=== PATIENT | male | born 1980 | race Caucasian/White ===

== ENCOUNTER 2023-02-26 17:14 | Inpatient (IN) | payer OTHER ==
[~2023-02-26] VITALS: Ht 175.3 cm; Wt 72.7 kg
[~2023-02-26 17:14] MED LIST: GABA-1181 PO; INSLAN SQ; INSNPH SQ
[2023-02-26] MEDS ORDERED: INSULIN REGULAR, HUMAN 100 UNITS/ML IVP ONE (19:00)
[2023-02-26 19:29] LABS: BASOPHILS % (AUTO) 0.7 % (0.0-2.0); EOSINOPHILS % (AUTO) 1.6 % (1.0-6.0); HEMATOCRIT 43.3 % (41-53); HEMOGLOBIN 14.9 g/dL (13.5-17.5); LYMPHOCYTES # (AUTO) 1.8 K/uL (1.0-4.8); LYMPHOCYTES % (AUTO) 22.1 % (22.0-44.0); MEAN CORPUSCULAR HEMOGLOBIN 29.3 pg (26.0-34.0); MEAN CORPUSCULAR HGB CONC 34.5 G/dL (31.0-37.0); MEAN CORPUSCULAR VOLUME 85 fL (80-100); MONOCYTES # (AUTO) 1.1 K/uL (0.1-1.0); MONOCYTES % (AUTO) 12.6 % (2.0-9.0); NEUTROPHILS # (AUTO) 5.3 K/uL (1.8-7.7); PLATELET COUNT (AUTO) 276 K/uL (150-450)
[2023-02-26 19:45] LABS: ALANINE AMINOTRANSFERASE 14 U/L (12-78); ALBUMIN 3.2 g/dL (3.4-5.0); ALKALINE PHOSPHATASE 116 U/L (46-116); ANION GAP 7 mmol/L (8-16); ASPARTATE AMINOTRANSFERASE 15 U/L (15-37); BILIRUBIN,TOTAL 0.6 mg/dL (0.1-1.0); CALCIUM, TOTAL 9.6 mg/dL (8.8-10.5); CARBON DIOXIDE 30 mmol/L (22-29); CHLORIDE 94 mmol/L (98-107); CREATININE 0.78 mg/dL (0.60-1.30); GLOMERULAR FILTR. RATE CALC > 60 mL/min (>60); LIPASE 26 U/L (16-77); POTASSIUM 4.9 mmol/L (3.5-5.1); SODIUM SERUM 131 mmol/L (136-145); TOTAL PROTEIN, SERUM 7.7 g/dL (6.4-8.2)
[2023-02-26 19:54] LABS: ACETONE,BLOOD NEGATIVE (NEGATIVE); GLUCOSE,RANDOM 417 mg/dL (70-110)
[2023-02-26] MEDS ORDERED: PIPERACILLIN/TAZO 3.375 GM/D5W 50 ML IV ONE (20:00)
[2023-02-26] MEDS ORDERED: VANCOMYCIN 1GM/WATER(PEG/NADA) 200 ML IV ONE (20:30)
[2023-02-26 20:34] LABS: COVID AG,FIA SOURCE NASOPHARYNGEAL
[2023-02-26 21:06] LABS: GLUCOMETER DEV NAME(LOC) ER.6
[2023-02-26] MEDS ORDERED: ONDANSETRON HCL 4 MG/2 ML VIAL IVP PRN (21:15)
[2023-02-26] MEDS ORDERED: BISACODYL 10 MG RECTAL RECTAL SUPPOSITORY PR PRN (21:15)
[2023-02-26] MEDS ORDERED: *CLINICAL-LEVOFLOXACIN IVPB DOSING CLINICAL ONE (21:15)
[2023-02-26] MEDS ORDERED: ACETAMINOPHEN 325 MG TABLET PO PRN (21:15)
[2023-02-26] MEDS ORDERED: SODIUM CHLORIDE 0.9% 1,000 ML IV ONE (21:15)
[2023-02-26] MEDS ORDERED: MAGNESIUM HYDROXIDE SUSPENSION 30 ML UDCUP PO PRN (21:15)
[2023-02-26 21:18] VITALS: BP 115/77; PULSE 81; RESP 20; TEMP 98.5
[2023-02-26] MEDS ORDERED: ZOLPIDEM TARTRATE 5 MG TABLET PO ONE (21:30)
[2023-02-26] MEDS ORDERED: LORazepam 2 MG/ML VIAL IVP PRN (21:30)
[2023-02-26] MEDS: HYDROCODONE/ACETAMINOPHEN 5-325 MG TABLET PO PRN (21:53)
[2023-02-26] MEDS: ZOLPIDEM TARTRATE 5 MG TABLET PO PRN (21:53)
[2023-02-26 22:16] LABS: GLUCOMETER DEV NAME(LOC) 6N.1
[2023-02-26] MEDS ORDERED: DEXTROSE 50%-WATER 25 GM/50 ML SYRINGE IVP PRN (23:30)
[2023-02-26] MEDS: LEVOFLOXACIN 750 MG/D5% WATER 150 ML IV SCH (23:34)
[2023-02-26] MEDS: HEPARIN SODIUM,PORCINE 5,000 UNITS/ML VIAL SQ SCH (23:34)
[2023-02-27] MEDS: PIPERACILLIN/TAZO 3.375 GM/D5W 50 ML IV SCH ×2 (02:53→08:49)
[2023-02-27] MEDS: HYDROCODONE/ACETAMINOPHEN 5-325 MG TABLET PO PRN ×4 (02:58→22:01)
[2023-02-27 05:45] VITALS: BP 102/70; PULSE 90; RESP 20; TEMP 98.4
[2023-02-27] MEDS: INSULIN LISPRO 100 UNITS/ML SQ PRN ×4 (06:02→22:01)
[2023-02-27 06:11] LABS: GLUCOMETER DEV NAME(LOC) 4E.2
[2023-02-27 07:34] LABS: BASOPHILS % (AUTO) 0.5 % (0.0-2.0); EOSINOPHILS % (AUTO) 1.9 % (1.0-6.0); HEMATOCRIT 39.2 % (41-53); HEMOGLOBIN 13.4 g/dL (13.5-17.5); LYMPHOCYTES # (AUTO) 1.4 K/uL (1.0-4.8); LYMPHOCYTES % (AUTO) 19.4 % (22.0-44.0); MEAN CORPUSCULAR HEMOGLOBIN 28.4 pg (26.0-34.0); MEAN CORPUSCULAR HGB CONC 34.2 G/dL (31.0-37.0); MEAN CORPUSCULAR VOLUME 83 fL (80-100); MONOCYTES # (AUTO) 0.9 K/uL (0.1-1.0); MONOCYTES % (AUTO) 11.6 % (2.0-9.0); NEUTROPHILS % (AUTO) 66.6 % (40.0-70.0); PLATELET COUNT (AUTO) 283 K/uL (150-450); RED BLOOD CELL COUNT(AUTO) 4.71 MIL/uL (4.50-5.90)
[2023-02-27 07:58] LABS: ANION GAP 8 mmol/L (8-16); CALCIUM, TOTAL 8.9 mg/dL (8.8-10.5); CARBON DIOXIDE 27 mmol/L (22-29); CHLORIDE 98 mmol/L (98-107); CREATININE 0.73 mg/dL (0.60-1.30); GLOMERULAR FILTR. RATE CALC > 60 mL/min (>60); GLUCOSE,RANDOM 219 mg/dL (70-110); POTASSIUM 3.9 mmol/L (3.5-5.1); SODIUM SERUM 133 mmol/L (136-145)
[2023-02-27] MEDS ORDERED: VANCOMYCIN HCL 1.25 GM in DEXTROSE 5%-WATER 250 ML IV SCH (08:00)
[2023-02-27] MEDS: DOCUSATE SODIUM 100 MG CAPSULE PO SCH ×2 (08:47→21:46)
[2023-02-27] MEDS: HEPARIN SODIUM,PORCINE 5,000 UNITS/ML VIAL SQ SCH ×3 (08:49→23:56)
[2023-02-27] MEDS: PANTOPRAZOLE SODIUM 40 MG DR TABLET PO SCH (08:49)
[2023-02-27] MEDS: MORPHINE SULFATE 2 MG/ML SYRINGE IVP PRN ×2 (08:51→15:33)
[2023-02-27 13:11] LABS: GLUCOMETER DEV NAME(LOC) 4E.2
[2023-02-27 15:24] VITALS: BP 113/77; PULSE 74; RESP 20; TEMP 98.4
[2023-02-27 20:19] VITALS: BP 111/75; PULSE 83; RESP 20; TEMP 98.1
[2023-02-27] MEDS: GABAPENTIN 300 MG CAPSULE PO SCH (21:46)
[2023-02-27] MEDS: LEVOFLOXACIN 750 MG/D5% WATER 150 ML IV SCH (21:47)
[2023-02-27] MEDS: INSULIN GLARGINE,HUM.REC.ANLOG 100 UNITS/ML SQ SCH (22:00)
[2023-02-27] MEDS: ZOLPIDEM TARTRATE 5 MG TABLET PO PRN (22:01)
[2023-02-27] MEDS ORDERED: SODIUM CHLORIDE 0.9% 500 ML IV ONE (22:09)
[2023-02-28 04:32] VITALS: BP 102/69; PULSE 81; RESP 20; TEMP 97.7
[2023-02-28] MEDS: INSULIN LISPRO 100 UNITS/ML SQ PRN ×4 (06:01→21:18)
[2023-02-28] MEDS: HYDROCODONE/ACETAMINOPHEN 5-325 MG TABLET PO PRN ×4 (06:01→21:18)
[2023-02-28 06:16] LABS: GLUCOMETER DEV NAME(LOC) 6N.2B
[2023-02-28 06:47] LABS: BASOPHILS % (AUTO) 0.7 % (0.0-2.0); EOSINOPHILS % (AUTO) 2.6 % (1.0-6.0); HEMATOCRIT 39.1 % (41-53); HEMOGLOBIN 13.6 g/dL (13.5-17.5); LYMPHOCYTES # (AUTO) 1.4 K/uL (1.0-4.8); LYMPHOCYTES % (AUTO) 19.3 % (22.0-44.0); MEAN CORPUSCULAR HGB CONC 34.6 G/dL (31.0-37.0); MEAN CORPUSCULAR VOLUME 84 fL (80-100); MONOCYTES # (AUTO) 0.7 K/uL (0.1-1.0); MONOCYTES % (AUTO) 9.5 % (2.0-9.0); NEUTROPHILS # (AUTO) 4.8 K/uL (1.8-7.7); NEUTROPHILS % (AUTO) 67.9 % (40.0-70.0); PLATELET COUNT (AUTO) 284 K/uL (150-450); RED BLOOD CELL COUNT(AUTO) 4.67 MIL/uL (4.50-5.90)
[2023-02-28 07:02] LABS: GLUCOMETER DEV NAME(LOC) 6N.1
[2023-02-28 07:02] LABS: GLUCOMETER DEV NAME(LOC) 6S.2
[2023-02-28 07:04] LABS: ANION GAP 5 mmol/L (8-16); CARBON DIOXIDE 30 mmol/L (22-29); CHLORIDE 100 mmol/L (98-107); CREATININE 0.69 mg/dL (0.60-1.30); GLOMERULAR FILTR. RATE CALC > 60 mL/min (>60); GLUCOSE,RANDOM 257 mg/dL (70-110); POTASSIUM 4.9 mmol/L (3.5-5.1); SODIUM SERUM 135 mmol/L (136-145)
[2023-02-28] MEDS: HEPARIN SODIUM,PORCINE 5,000 UNITS/ML VIAL SQ SCH ×2 (08:54→16:04)
[2023-02-28] MEDS: DOCUSATE SODIUM 100 MG CAPSULE PO SCH ×2 (08:55→21:17)
[2023-02-28] MEDS: PANTOPRAZOLE SODIUM 40 MG DR TABLET PO SCH (08:55)
[2023-02-28 12:50] LABS: GLUCOMETER DEV NAME(LOC) 6N.1
[2023-02-28 20:00] VITALS: BP 108/77; PULSE 84; RESP 20; TEMP 98.9
[2023-02-28] MEDS: GABAPENTIN 300 MG CAPSULE PO SCH (21:17)
[2023-02-28] MEDS: LEVOFLOXACIN 750 MG/D5% WATER 150 ML IV SCH (21:17)
[2023-02-28] MEDS: INSULIN GLARGINE,HUM.REC.ANLOG 100 UNITS/ML SQ SCH (21:19)
[2023-03-01] MEDS: HEPARIN SODIUM,PORCINE 5,000 UNITS/ML VIAL SQ SCH ×3 (00:04→16:33)
[2023-03-01 04:57] VITALS: BP 116/77; PULSE 82; RESP 20; TEMP 98.8
[2023-03-01 06:01] LABS: GLUCOMETER DEV NAME(LOC) 4E.2
[2023-03-01 06:01] LABS: GLUCOMETER DEV NAME(LOC) 4E.2
[2023-03-01] MEDS: INSULIN LISPRO 100 UNITS/ML SQ PRN ×4 (06:19→22:03)
[2023-03-01] MEDS: HYDROCODONE/ACETAMINOPHEN 5-325 MG TABLET PO PRN ×3 (06:19→21:46)
[2023-03-01 07:39] LABS: BASOPHILS % (AUTO) 0.7 % (0.0-2.0); EOSINOPHILS % (AUTO) 2.9 % (1.0-6.0); HEMATOCRIT 40.1 % (41-53); LYMPHOCYTES % (AUTO) 15.9 % (22.0-44.0); MEAN CORPUSCULAR HEMOGLOBIN 29.1 pg (26.0-34.0); MEAN CORPUSCULAR HGB CONC 34.9 G/dL (31.0-37.0); MEAN CORPUSCULAR VOLUME 83 fL (80-100); MONOCYTES # (AUTO) 0.6 K/uL (0.1-1.0); MONOCYTES % (AUTO) 9.8 % (2.0-9.0); NEUTROPHILS # (AUTO) 4.4 K/uL (1.8-7.7); NEUTROPHILS % (AUTO) 70.7 % (40.0-70.0); PLATELET COUNT (AUTO) 315 K/uL (150-450); RED BLOOD CELL COUNT(AUTO) 4.81 MIL/uL (4.50-5.90); RED CELL DISTRIBUTION WIDTH 13.7 % (11.5-14.5)
[2023-03-01 07:55] LABS: ANION GAP 9 mmol/L (8-16); CALCIUM, TOTAL 9.2 mg/dL (8.8-10.5); CARBON DIOXIDE 27 mmol/L (22-29); CHLORIDE 98 mmol/L (98-107); CREATININE 0.63 mg/dL (0.60-1.30); GLOMERULAR FILTR. RATE CALC > 60 mL/min (>60); GLUCOSE,RANDOM 232 mg/dL (70-110); POTASSIUM 4.1 mmol/L (3.5-5.1); SODIUM SERUM 134 mmol/L (136-145)
[2023-03-01 08:06] LABS: GLUCOMETER DEV NAME(LOC) 6S.2
[2023-03-01] MEDS: DOCUSATE SODIUM 100 MG CAPSULE PO SCH ×2 (08:10→21:00)
[2023-03-01] MEDS: PANTOPRAZOLE SODIUM 40 MG DR TABLET PO SCH (08:10)
[2023-03-01 19:23] VITALS: BP 107/66; PULSE 84; RESP 20; TEMP 98.7
[2023-03-01 20:01] LABS: GLUCOMETER DEV NAME(LOC) 6S.2
[2023-03-01 20:01] LABS: GLUCOMETER DEV NAME(LOC) 4E.2
[2023-03-01] MEDS: GABAPENTIN 300 MG CAPSULE PO SCH (21:45)
[2023-03-01] MEDS: LEVOFLOXACIN 750 MG/D5% WATER 150 ML IV SCH (21:46)
[2023-03-01] MEDS: INSULIN GLARGINE,HUM.REC.ANLOG 100 UNITS/ML SQ SCH (22:02)
[2023-03-02] MEDS: HEPARIN SODIUM,PORCINE 5,000 UNITS/ML VIAL SQ SCH ×3 (00:43→16:00)
[2023-03-02 04:59] VITALS: BP 117/80; PULSE 91; RESP 20; TEMP 99.1
[2023-03-02] MEDS: INSULIN LISPRO 100 UNITS/ML SQ PRN ×4 (05:27→20:23)
[2023-03-02] MEDS: HYDROCODONE/ACETAMINOPHEN 5-325 MG TABLET PO PRN ×4 (05:31→22:33)
[2023-03-02 08:07] LABS: GLUCOMETER DEV NAME(LOC) 6N.2B
[2023-03-02 08:07] LABS: GLUCOMETER DEV NAME(LOC) 6N.2B
[2023-03-02 08:32] VITALS: BP 128/84; PULSE 91; RESP 20; TEMP 98.8
[2023-03-02] MEDS: PANTOPRAZOLE SODIUM 40 MG DR TABLET PO SCH (09:02)
[2023-03-02] MEDS: DOCUSATE SODIUM 100 MG CAPSULE PO SCH ×2 (09:02→20:26)
[2023-03-02 14:41] LABS: GLUCOMETER DEV NAME(LOC) 6S.2
[2023-03-02 16:51] VITALS: BP 118/83; PULSE 97; RESP 20; TEMP 98.4
[2023-03-02 19:59] VITALS: BP 112/64; PULSE 84; RESP 20; TEMP 98.4
[2023-03-02] MEDS: INSULIN GLARGINE,HUM.REC.ANLOG 100 UNITS/ML SQ SCH (20:25)
[2023-03-02] MEDS: GABAPENTIN 300 MG CAPSULE PO SCH (20:26)
[2023-03-02] MEDS: LEVOFLOXACIN 750 MG/D5% WATER 150 ML IV SCH (21:30)
[2023-03-03] MEDS: HEPARIN SODIUM,PORCINE 5,000 UNITS/ML VIAL SQ SCH ×2 (00:38→08:53)
[2023-03-03 04:20] VITALS: BP 108/77; PULSE 79; RESP 18; TEMP 98.3
[2023-03-03] MEDS: HYDROCODONE/ACETAMINOPHEN 5-325 MG TABLET PO PRN ×2 (06:05→13:21)
[2023-03-03] MEDS: INSULIN LISPRO 100 UNITS/ML SQ PRN ×2 (06:14→11:57)
[2023-03-03 07:46] LABS: GLUCOMETER DEV NAME(LOC) 6S.2
[2023-03-03 07:46] LABS: GLUCOMETER DEV NAME(LOC) 6N.2B
[2023-03-03 07:46] LABS: GLUCOMETER DEV NAME(LOC) 4E.2
[2023-03-03 08:00] VITALS: BP 108/74; PULSE 89; RESP 18; TEMP 98
[2023-03-03] MEDS: DOCUSATE SODIUM 100 MG CAPSULE PO SCH (08:53)
[2023-03-03] MEDS: PANTOPRAZOLE SODIUM 40 MG DR TABLET PO SCH (08:54)
[2023-03-03] MEDS ORDERED: LEVO750T68 PO (11:00)
[2023-03-03 18:16] LABS: GLUCOMETER DEV NAME(LOC) 6S.2
== END 2023-03-03 16:20 | DRG 641 ==
LOC: EMS 17:22 → 6S 20:00
PROVIDERS: ADMIT Internal Medicine; ATTEND Internal Medicine
DX: E87.1 Hypo-osmolality and hyponatremia (principal); L03.115 Cellulitis of right lower limb; E11.65 Type 2 diabetes mellitus with hyperglycemia; F17.210 Nicotine dependence, cigarettes, uncomplicated; E11.40 Type 2 diabetes mellitus with diabetic neuropathy, unspecified; Z20.822 Contact with and (suspected) exposure to COVID-19; Z79.4 Long term (current) use of insulin; Z79.899 Other long term (current) drug therapy
CPT/HCPCS: 80048; 80053; 82009; 82962; 83605; 83690; 85025; 87040; 93970; 99285; J1644; J1815; J1956; J2270; J2543; J3370; J7030; J7040; J7060; Q9967